=== PATIENT | female | born 1995 | race Two or more races ===

== ENCOUNTER 2016-09-18 11:30 | Outpatient (CLI) | payer BC, OTHER | END 2016-09-18 11:31 | disposition home or self-care (01) | DX: Z36 Encounter for antenatal screening of mother (principal) ==

== ENCOUNTER 2016-11-27 07:26 | Outpatient (CLI) | payer BC | END 2016-11-27 07:27 | disposition home or self-care (01) | DX: Z36 Encounter for antenatal screening of mother (principal) ==

== ENCOUNTER 2017-01-11 13:32 | Outpatient (CLI) | payer BC ==
[2017-01-11 19:14] LABS: BASOPHILS % (AUTO) 0.4 %; EOSINOPHILS # (AUTO) 0.1 10^3/uL (0.0-0.7); EOSINOPHILS % (AUTO) 1.4 %; HGB - HEMOGLOBIN 11.6 g/dL (12.0-16.0); LYMPHOCYTES # (AUTO) 1.8 10^3/uL (1.5-3.5); LYMPHOCYTES % (AUTO) 28.7 %; MEAN CORPUSCULAR HEMOGLOBIN 29.2 pg (27.0-31.0); MEAN CORPUSCULAR VOLUME 88.4 fL (81.0-99.0); MEAN PLATELET VOLUME 9.2 fL (7.9-10.8); MONOCYTES # (AUTO) 0.7 10^3/uL (0.0-1.0); MONOCYTES % (AUTO) 10.7 %; NEUTROPHILS # (AUTO) 3.7 10^3/uL (1.5-6.6); NEUTROPHILS % (AUTO) 58.8 %; NUCLEATED RED BLOOD CELLS AUTO 0.1 /100WBC; RED BLOOD COUNT 3.96 10^6/uL (4.20-5.40); UNCORRECTED WHITE BLOOD COUNT 6.3 x10^3/uL; WHITE BLOOD COUNT 6.3 x10^3/uL (4.8-10.8)
== END 2017-01-11 13:33 | disposition home or self-care (01) ==
LOC: LAB.R 13:32
PROVIDERS: ATTEND Obstetrics & Gynecology
DX: Z34.90 Encounter for supervision of normal pregnancy, unspecified, unspecified trimester (principal)
CPT/HCPCS: 36415; 82950; 85025; 86850

== ENCOUNTER 2017-02-24 10:26 | Outpatient (CLI) | payer BC | END 2017-02-24 10:27 | disposition critical access hospital (66) | LOC: EMS 10:26 | PROVIDERS: ATTEND Surgery | DX: O99.89 Other specified diseases and conditions complicating pregnancy, childbirth and the puerperium (principal); R10.9 Unspecified abdominal pain; M79.662 Pain in left lower leg; M79.661 Pain in right lower leg; V43.52XA Car driver injured in collision with other type car in traffic accident, initial encounter; Y92.413 State road as the place of occurrence of the external cause | CPT/HCPCS: A0425; A0429 ==

== ENCOUNTER 2017-02-24 10:51 | Observation (INO) | payer BC ==
[2017-02-24] MEDS ORDERED: SODIUM CHLORIDE 0.9% 1,000 ML IV ONE (11:14)
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
[2017-02-24 11:44] LABS: BASOPHILS # (AUTO) 0.1 10^3/uL (0.0-0.1); EOSINOPHILS # (AUTO) 0.1 10^3/uL (0.0-0.7); HCT - HEMATOCRIT 33.3 % (37.0-47.0); HGB - HEMOGLOBIN 10.9 g/dL (12.0-16.0); LYMPHOCYTES # (AUTO) 1.6 10^3/uL (1.5-3.5); LYMPHOCYTES % (AUTO) 29.3 %; MEAN CORPUSCULAR HEMOGLOBIN 27.7 pg (27.0-31.0); MEAN CORPUSCULAR HGB CONC 32.9 g/dL (32.0-36.0); MEAN CORPUSCULAR VOLUME 84.5 fL (81.0-99.0); MONOCYTES # (AUTO) 0.6 10^3/uL (0.0-1.0); MONOCYTES % (AUTO) 11.8 %; NEUTROPHILS % (AUTO) 56.9 %; NUCLEATED RED BLOOD CELLS AUTO 0.1 /100WBC; RED BLOOD COUNT 3.95 10^6/uL (4.20-5.40); RED CELL DISTRIBUTION WIDTH 13.6 % (12.0-15.0); UNCORRECTED WHITE BLOOD COUNT 5.3 x10^3/uL; WHITE BLOOD COUNT 5.3 x10^3/uL (4.8-10.8)
[2017-02-24 11:48] LABS: BILIRUBIN,URINE NEGATIVE (NEGATIVE)
[2017-02-24 11:49] LABS: UA CHARGE (STRIP ONLY) YES; UR CULTURE IF IND NOT INDICATED
[2017-02-24 11:56] LABS: ALBUMIN/GLOBULIN RATIO 0.8 (1.0-2.2); BILIRUBIN,TOTAL 0.5 mg/dL (0.2-1.0); CALCIUM 8.3 mg/dL (8.5-10.3); CREATININE 0.6 mg/dL (0.4-1.0); POTASSIUM 3.3 mmol/L (3.5-5.0); TOTAL PROTEIN 6.8 g/dL (6.7-8.2)
[2017-02-24] MEDS ORDERED: SODIUM CHLORIDE FLUSH 0.9% 10 ML SYRINGE IVP PRN (12:02)
[2017-02-24 12:30] LABS: BASOPHILS % (AUTO) 0.6 %; EOSINOPHILS % (AUTO) 0.7 %; HCT - HEMATOCRIT 30.6 % (37.0-47.0); HGB - HEMOGLOBIN 10.2 g/dL (12.0-16.0); LYMPHOCYTES # (AUTO) 1.3 10^3/uL (1.5-3.5); LYMPHOCYTES % (AUTO) 27.6 %; MEAN CORPUSCULAR HEMOGLOBIN 28.2 pg (27.0-31.0); MEAN CORPUSCULAR HGB CONC 33.3 g/dL (32.0-36.0); MEAN CORPUSCULAR VOLUME 84.5 fL (81.0-99.0); MEAN PLATELET VOLUME 8.9 fL (7.9-10.8); MONOCYTES # (AUTO) 0.6 10^3/uL (0.0-1.0); MONOCYTES % (AUTO) 11.9 %; NEUTROPHILS # (AUTO) 2.9 10^3/uL (1.5-6.6); NEUTROPHILS % (AUTO) 59.2 %; RED BLOOD COUNT 3.62 10^6/uL (4.20-5.40); RED CELL DISTRIBUTION WIDTH 13.6 % (12.0-15.0); UNCORRECTED WHITE BLOOD COUNT 4.9 x10^3/uL; WHITE BLOOD COUNT 4.9 x10^3/uL (4.8-10.8)
[2017-02-24] MEDS ORDERED: SODIUM CHLORIDE FLUSH 0.9% 10 ML SYRINGE IVP SCH (14:00)
--- NOTE | 2017-02-24 15:19 | Ultrasound Preliminary Report ---
Exam: US OB Limited IMPRESSION: 1. Single live intrauterine with a gestational age of 33 weeks 2 days based on LMP. 2. Anterior placenta without evidence for abruption. 3. Normal amniotic fluid volume. [facility] SITE ID: [id number]
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
--- NOTE | 2017-02-25 04:35 | Discharge Plan ---
Discharge Plan Disposition: 01 Home, Self Care Diet: Regular Activity Restrictions: Activity as Tolerated Shower Restrictions: No Driving Restrictions: No Weight Bearing: Full Weight No Smoking: If you smoke, Please STOP! Call for help. Follow-up with: John Ozuna MD [Provider Admit Priv/Credential] -
[2017-02-25 08:47] VITALS: BP 108/71
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
== END 2017-02-25 09:45 | disposition home or self-care (01) ==
LOC: EDUNIT# → ED 10:51 → FBP 12:02
PROVIDERS: ADMIT Obstetrics & Gynecology; ATTEND Obstetrics & Gynecology
DX: O9A.213 Injury, poisoning and certain other consequences of external causes complicating pregnancy, third trimester (principal); S80.12XA Contusion of left lower leg, initial encounter; S80.11XA Contusion of right lower leg, initial encounter; R10.9 Unspecified abdominal pain; Z3A.33 33 weeks gestation of pregnancy; V43.52XA Car driver injured in collision with other type car in traffic accident, initial encounter; Y92.410 Unspecified street and highway as the place of occurrence of the external cause
CPT/HCPCS: 36415; 76815; 80053; 81001; 81003; 83690; 85025; 87086; 99284

== ENCOUNTER 2017-03-15 15:58 | Outpatient (CLI) | payer BC | END 2017-03-15 15:59 | LOC: LAB.R 15:58 | PROVIDERS: ATTEND Obstetrics & Gynecology | DX: Z36 Encounter for antenatal screening of mother (principal) | CPT/HCPCS: 87081 ==

== ENCOUNTER 2017-03-20 09:43 | Outpatient (CLI) | payer BC ==
[2017-03-20 10:45] VITALS: BP 122/64
--- NOTE | 2017-03-20 16:53 | Ultrasound Report ---
BIOPHYSICAL PROFILE: 03/20/2017 CLINICAL INDICATION: Small for gestational age. TECHNIQUE: Real-time scanning was performed with corporate representative static images obtained. biophysical profile was performed. The fetus receives 2 points for tone, 2 points for fe eva movements, 2 points for respiration, and 2 points for amniotic fluid, yielding a final resu lt of 02/27. heart rate is 147 BPM. By size, the fetus measures 33 weeks 5 days (36 weeks 5 day s by LMP). Estimated weight is 2426 grams, 11th percentile by LMP dating. IMPRESSION: 02/27 BIOPHYSICAL PROFILE. ESTIMATED WEIGHT OF 2426 GRAMS. JOB #: [id number] EXT JOB #:[id number]
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
== END 2017-03-20 14:00 | disposition home or self-care (01) ==
LOC: WFO 09:43 → FBP 09:46 → WFO 14:00
PROVIDERS: ATTEND Obstetrics & Gynecology
DX: O36.8130 Decreased fetal movements, third trimester, not applicable or unspecified (principal); O36.5930 Maternal care for other known or suspected poor fetal growth, third trimester, not applicable or unspecified; Z3A.36 36 weeks gestation of pregnancy
CPT/HCPCS: 59025; 76819

== ENCOUNTER 2017-03-23 08:37 | Outpatient (CLI) | payer BC ==
[2017-03-23 08:57] VITALS: BP 118/85
--- NOTE | 2017-03-23 11:37 | Ultrasound Report ---
BIOPHYSICAL PROFILE: 03/23/2017 CLINICAL INDICATION: Nonreactive nonstress test. TECHNIQUE: Real-time scanning was performed with benefits representative static images obtained. FINDINGS: The fetus receives 2 points for tone, 2 points for movement, 2 points for feta l respiration, and 2 points for amniotic fluid, yielding a final score of 8 out of 8. The hear t rate is 133 BPM. IMPRESSION: BIOPHYSICAL PROFILE SCORE OF 8 OUT OF 8. JOB #: [id number] EXT JOB #:[id number]
== END 2017-03-23 12:10 | disposition home or self-care (01) ==
LOC: WFO 08:37 → FBP 08:40 → WFO 12:10
PROVIDERS: ATTEND Obstetrics & Gynecology
DX: O36.5930 Maternal care for other known or suspected poor fetal growth, third trimester, not applicable or unspecified (principal); Z3A.37 37 weeks gestation of pregnancy
CPT/HCPCS: 59025; 76819

== ENCOUNTER 2017-03-29 11:07 | Outpatient (CLI) | payer BC ==
[2017-03-29 11:20] VITALS: BP 123/70
--- NOTE | 2017-03-29 14:40 | Ultrasound Report ---
OB FOLLOWUP: 03/29/2017 CLINICAL INDICATION: Small for dates. TECHNIQUE: Real-time scanning was performed with branch customer service representative static images obtained. LAST MENSTRUAL PERIOD 07/06/2016 Clinical Age 38 weeks 0 days US Age 33 weeks 4 days EFW [place] 2139 g EFW% [place] 86% Heart Rate 157 bpm EDC 04/12/2017 US EDC 05/13/2017 BPD [place] 32 weeks 4 days; Mean mm 80.9 HC [place] 34 weeks 2 days; Mean mm 307.6 AC [place] 31 weeks 6 days; Mean mm 277.4 FL [place] 35 weeks 2 days; Mean mm 68.8 Presentation cephalic Placental Location anterior Cervical Length --- Amniotic Fluid 12.7 cm FINDINGS: There is a single viable intrauterine gestation, in cephalic presentation. heart rate is 157 BPM. The placenta is anterior, without evidence of previa. Amniotic fluid volume is normal, with an RASHEED of 12.7. By size, the fetus now measures 33 weeks 4 days (38 weeks 0 days by initial sonogram). Estimated weight is 2139 grams, less than 1% for gestational age. Cord Dopplers are unremarkable. No free fluid or adnexal lesion is appreciated. IMPRESSION: SINGLE VIABLE INTRAUTERINE GESTATION, NOW MEASURING LESS THAN 1 PERCENTILE ESTIMATED WEIGHT FOR GESTATIONAL AGE. NORMAL CORD DOPPLERS AND NORMAL RASHEED. MTDD
== END 2017-03-29 13:23 | disposition home or self-care (01) ==
LOC: WFO 11:07 → FBP 11:09 → WFO 13:23
PROVIDERS: ATTEND Obstetrics & Gynecology
DX: O36.5930 Maternal care for other known or suspected poor fetal growth, third trimester, not applicable or unspecified (principal); Z3A.38 38 weeks gestation of pregnancy
CPT/HCPCS: 59025; 76816

== ENCOUNTER 2017-03-29 18:07 | Inpatient (IN) | payer BC ==
--- NOTE | 2017-03-29 14:49 | HISTORY & PHYSICAL EXAMINATION ---
DATE OF ADMISSION: 03/29/2017 IDENTIFICATION: A 21-year-old, G3, P1-0-1-1 with 38 and 0/7-week intrauterine . EDC is 04/12 consistent with a 10 week ultrasound. HISTORY OF PRESENT ILLNESS: This is a patient of [facility] who presents today for a routine OB visit. Within the last 2-3 weeks she has been measuring size less than dates. A t 36 weeks, she was measuring 32 cm. Ultrasound at that time was obtained on 03/20/2017 revealing a B PP of 8/8 and estimated weight of 2426 grams or the 11th percentile. RASHEED was normal at 12.4 cm. Today, at 38 weeks the patient is here for a routine OB visit. She is again measuring size less than dates at 34 cm at 38 weeks 0 days. Another ultrasound was performed, which showed normal Doppler wilbert ws; however, estimated weight has been decreased at 2163 grams or 4 pounds 12 ounces. The baby is measuring the 1st percentile. Cervical length measured approximately 3 cm. Nonstress test was ermias gory 1. The patient is trevor every 2 minutes. I discussed with the patient that the diagnosis currently is intrauterine growth restriction for her baby since she has dropped from 11 percentile to the 1st percentile. Though the status currentl y is reassuring, I feel it is in the patient's best interest to get the baby delivered as it is most likely in a toxic environment in utero. Given the length of the cervix, the patient would most likely need some cervical ripening. If she continues to contract, we will probably give her Cervidil overni ght and start Pitocin, assuming that her cervix is thinned out in the morning. PAST MEDICAL HISTORY: None. PAST SURGICAL HISTORY 1. Appendectomy. 2. 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 ALLERGIES: NO KNOWN DRUG ALLERGIES. MEDICATIONS: vitamins. SOCIAL HISTORY: She denies any tobacco, alcohol or illicit drug use. The patient's boyfriend's name i s Jr, and they have a daughter, Akila. This is a female fetus with anticipated name of Grant Mayers MD, is their chosen field operations coordinator, and the patient does anticipate to breast feed. She also wants an epidural for pain control in labor. PAST OBSTETRICAL HISTORY 1. One therapeutic . 2. On 04/21/2015 at 37 weeks' gestation, the patient delivered her daughter Akila after spontaneo usly rupturing her membranes at 37 weeks. weight was 2267 grams. There were no complications. PAST GYNECOLOGIC HISTORY: The patient has had an ASCUS Pap smear in August of this year. She denies any other sexually transmitted diseases. FAMILY HISTORY: Breast cancer in the maternal aunt and cervical cancer in maternal grandmother. REVIEW OF SYSTEMS Negative unless otherwise stated. She denies any nausea, vomiting, fevers, chills, diarrhea or consti pation. OBJECTIVE VITAL SIGNS: She weighs 120 pounds. Height is 60 inches. BMI of 23.5. Blood pressure 120/68. GENERAL: The patient is a well-developed, well-nourished female in no apparent distr ess. She is alert and oriented x3. HEENT: Within normal limits. She does wear glasses. CARDIOVASCULAR: Rate is regular. No murmurs or rubs. PULMONARY: Lungs clear to auscultation bilaterally. ABDOMEN: Gravid, nontender. LABORATORY DATA: Laboratories reveal that she is O positive. Antibody screen is negative. ASCUS Pap s mear on 09/12/2016 Pap smear HIV negative, RPR nonreactive, rubella immune, hepatitis B surface antig en nonreactive. anatomical survey is consistent with dates and within normal limits. One hour G TT is 82. GBS is negative. ASSESSMENT 1. A 21-year-old G3, P1-0-1-1 with a 38 and 0/7 week intrauterine . 2. Intrauterine growth restriction. 3. Cervix remote from delivery. PLAN 1. The patient to go home and return after she has gotten her affairs in order for induction of labor . 2. Most likely Cervidil induction overnight with Pitocin in the morning. 3. Closely monitor the tracing. Most likely, we will have the field operations coordinator regional medical director to be in att endance for delivery. 4. Epidural for pain control. 5. Anticipate after delivery. JOB #: [id number] EXT JOB #:[id number]
[2017-03-29] MEDS ORDERED: ONDANSETRON 4 MG/2 ML VIAL IVP PRN (18:33)
[2017-03-29] MEDS ORDERED: fentaNYL 100 MCG/2 ML VIAL IVP PRN (18:33)
[2017-03-29] MEDS ORDERED: ACETAMINOPHEN 325 MG TABLET PO PRN (18:33)
[2017-03-29] MEDS ORDERED: SODIUM CHLORIDE FLUSH 0.9% 10 ML SYRINGE IVP PRN (18:33)
[2017-03-29] MEDS ORDERED: ZOLPIDEM 5 MG TABLET PO PRN (18:37)
[2017-03-29] MEDS ORDERED: DINOPROSTONE 10 MG SUPP VG ONE (19:00)
[2017-03-29 19:07] LABS: BASOPHILS # (AUTO) 0.1 10^3/uL (0.0-0.1); BASOPHILS % (AUTO) 1.2 %; EOSINOPHILS # (AUTO) 0.1 10^3/uL (0.0-0.7); EOSINOPHILS % (AUTO) 1.3 %; HCT - HEMATOCRIT 35.1 % (37.0-47.0); HGB - HEMOGLOBIN 11.5 g/dL (12.0-16.0); LYMPHOCYTES # (AUTO) 2.4 10^3/uL (1.5-3.5); LYMPHOCYTES % (AUTO) 33.8 %; MEAN CORPUSCULAR HEMOGLOBIN 26.5 pg (27.0-31.0); MEAN CORPUSCULAR HGB CONC 32.7 g/dL (32.0-36.0); MEAN CORPUSCULAR VOLUME 81.2 fL (81.0-99.0); MEAN PLATELET VOLUME 9.5 fL (7.9-10.8); MONOCYTES # (AUTO) 0.7 10^3/uL (0.0-1.0); NEUTROPHILS # (AUTO) 3.8 10^3/uL (1.5-6.6); NEUTROPHILS % (AUTO) 53.7 %; NUCLEATED RED BLOOD CELLS AUTO 0.1 /100WBC; RED BLOOD COUNT 4.33 10^6/uL (4.20-5.40); RED CELL DISTRIBUTION WIDTH 14.9 % (12.0-15.0); UNCORRECTED WHITE BLOOD COUNT 7.2 x10^3/uL; WHITE BLOOD COUNT 7.2 x10^3/uL (4.8-10.8)
[2017-03-29] MEDS ORDERED: LACTATED RINGERS 1,000 ML IV ONE ×2 (19:16→19:21)
[2017-03-30] MEDS ORDERED: LACTATED RINGERS 1,000 ML IV ONE (02:35)
[2017-03-30] MEDS ORDERED: OXYTOCIN 10 UNIT/ML VIAL ONE ×2 (02:49→02:55)
[2017-03-30] MEDS ORDERED: LACTATED RINGERS 500 ML IV ONE (02:52)
[2017-03-30] MEDS ORDERED: fent/BUPIV 2 MCG/0.125% 0 ML EP ONE (03:09)
[2017-03-30] MEDS ORDERED: fentaNYL 100 MCG/2 ML VIAL ONE (03:10)
[2017-03-30] MEDS ORDERED: OXYTOCIN/LACTATED RINGERS 250 ML IV ONE ×2 (03:12→04:06)
[2017-03-30] MEDS ORDERED: LIDOCAINE 1% 50 ML MDV ONE (03:39)
[2017-03-30] MEDS ORDERED: HYDROCORTISONE/PRAMOXINE 10 GM PR PRN (04:06)
[2017-03-30] MEDS ORDERED: SIMETHICONE CHEW 80 MG TABLET PO PRN (04:06)
[2017-03-30] MEDS ORDERED: WITCH HAZEL/GLYCERIN 1 EACH MED..PAD TOP PRN (04:06)
[2017-03-30] MEDS ORDERED: HYDROCORTISONE 1% CREAM 28 GM TUBE PR PRN (04:06)
--- NOTE | 2017-03-30 04:06 | DELIVERY NOTE ---
Delivery Note - Labor Labor: positive: Other (Induction with cervidil) - Delivery Method Infant Delivery Method: positive: Spontaneous vaginal delivery - Presentation Presentation: positive: Vertex - Nuchal Cord Nuchal Cord: positive: None - Anesthetic Anesthetic: positive: Lidocaine - 0.5% plain Volume: positive: 2cc - Amniotic Fluid Description Amniotic Fluid Description: positive: Clear - Episiotomy Type Episiotomy Type: positive: None - Laceration Laceration: positive: 1st degree, Perineal - Suture Suture Type: positive: Vicryl Suture Size: positive: 4-0 - Delivery Outcome Delivery Outcome: positive: Livebirth - [place] sex: positive: Female : 9 : 9 - Cord Cord: positive: 3 vessels - Placenta Placenta: positive: Intact, Spontaneous - Estimated Blood Loss Estimated Blood Loss (in cc): 200 - Post Delivery Events Post Delivery Events: positive: No post delivery events - Delivery Comments (Free Text/Narrative) Delivery Comments (Free Text/Narrative): 21 yo with a 38w0d IUP was induced for IUGR. 03/29/2017 U/S showed EFW 2139 gm, 0.86%centile, RASHEED 12.7 cm. Normal cord dopplers. Patient was given cervidil. SROM and RN exam was 4 cm at the time. The patient precipitously delivered a viable female , "Delfina" by Camryn YA RN. Did not receive epidural as she had desired. Apgars 9/9. Weight 2500 gm or 5 lbs 8.1 oz. 1st degree laceration repaired with 4-0 vicryl. EBL 200 mL. Placenta delivered spontaneously, intact with 3VC. Placenta to pathology. No complications. Labs, EKG, Meds, Allergy - Lab Results Fish Bones: 03/29/17 18:53 Other Lab Results: Lab Results x24hrs 03/29/17 Range/Units 18:53 WBC 7.2 (4.8-10.8) x10^3/uL RBC 4.33 (4.20-5.40) 10^6/uL Hgb 11.5 L (12.0-16.0) g/dL Hct 35.1 L (37.0-47.0) % MCV 81.2 (81.0-99.0) fL MCH 26.5 L (27.0-31.0) pg MCHC 32.7 (32.0-36.0) g/dL RDW 14.9 (12.0-15.0) % Plt Count 247 (130-450) 10^3/uL MPV 9.5 (7.9-10.8) fL Neut # 3.8 (1.5-6.6) 10^3/uL Lymph # 2.4 (1.5-3.5) 10^3/uL [place] # 0.7 (0.0-1.0) 10^3/uL Eos # 0.1 (0.0-0.7) 10^3/uL Baso # 0.1 (0.0-0.1) 10^3/uL Absolute Nucleated RBC 0.01 x10^3/uL Nucleated RBCs 0.1 /100WBC - Medications Medications: Ambulatory Orders Medication Instructions Recorded Confirmed No Known Home Medications [No 02/27/14 02/27/14 Known Home Medications] - Allergy Allergy: Allergies Allergy/AdvReac Type Severity Reaction Status Date / Time No Known Drug Allergies Allergy Verified 02/27/14 09:39 No Known Home Medications [No Known Home Medications] 02/27/14
[2017-03-30] MEDS ORDERED: HYDROcodone/ACETAM 7.5 MG/325 MG 15 ML UDC PO PRN (04:10)
[2017-03-30] MEDS ORDERED: IBUPROFEN 100 MG/5 ML UDC ONE (04:40)
[2017-03-30] MEDS: IBUPROFEN 100 MG/5 ML UDC PO SCH ×4 (04:43→23:21)
[2017-03-30] MEDS: ACETAMINOPHEN 160 MG/5 ML SUSP UDC PO SCH ×3 (07:15→18:05)
--- NOTE | 2017-03-30 14:31 | PROVIDER PROGRESS NOTE ---
Subjective - Prog Note Date Prog Note Date: 03/30/17 Prog Note Time: 14:29 - Subjective Pt reports feeling: Improved Subjective: Patient trying to sleep in bed. [id number] visiting. Anabell Norris and two year old daughter Akila also here. Doing well, no complaints. No BP issues like she had with Akila. BP elevated . Objective - Vital Signs/Intake & Output Reviewed Vital Signs: Yes Vital Signs: Vital Signs x48h Temp Pulse Resp BP 03/30/17 09:09 98.8 F 95 16 117/74 Intake & Output: Intake & Output 03/27/17 03/28/17 03/29/17 03/30/17 23:59 23:59 23:59 23:59 Intake Total 500 875 Output Total 1 451 Balance 499 424 - Objective General Appearance: positive: No acute distress Eyes Bilateral: positive: Normal inspection Neurologic/Psychiatric: positive: Oriented x3, Mood/affect nml - Lab Results Fish Bones: 03/29/17 18:53 Other Labs: Lab Results x24hrs 03/29/17 Range/Units 18:53 WBC 7.2 (4.8-10.8) x10^3/uL RBC 4.33 (4.20-5.40) 10^6/uL Hgb 11.5 L (12.0-16.0) g/dL Hct 35.1 L (37.0-47.0) % MCV 81.2 (81.0-99.0) fL MCH 26.5 L (27.0-31.0) pg MCHC 32.7 (32.0-36.0) g/dL RDW 14.9 (12.0-15.0) % Plt Count 247 (130-450) 10^3/uL MPV 9.5 (7.9-10.8) fL Neut # 3.8 (1.5-6.6) 10^3/uL Lymph # 2.4 (1.5-3.5) 10^3/uL Moca # 0.7 (0.0-1.0) 10^3/uL Eos # 0.1 (0.0-0.7) 10^3/uL Baso # 0.1 (0.0-0.1) 10^3/uL Absolute Nucleated RBC 0.01 x10^3/uL Nucleated RBCs 0.1 /100WBC Assessment/Plan - Problem List (1) Vaginal delivery Impression: 21 yo S/p 03/30/2017 Normal recovery Routine care Anticipate discharge to home tomorrow Follow up with Dr. Hutchinson in 6 weeks for a routine exam Rx for liquid ibuprofen sent to [facility] Handwritten Rx for liquid vicodin written for discharge Call if worsening fevers, chills, abdominal pain or vaginal bleeding Will discuss contraception at next visit (2) growth restriction Impression: IUGR, delivered
[2017-03-31] MEDS: ACETAMINOPHEN 160 MG/5 ML SUSP UDC PO SCH ×3 (00:27→13:23)
[2017-03-31] MEDS: IBUPROFEN 100 MG/5 ML UDC PO SCH ×2 (06:29→13:19)
[2017-03-31 08:44] VITALS: BP 107/66
--- NOTE | 2017-03-31 11:38 | PROVIDER PROGRESS NOTE ---
Subjective - Prog Note Date Prog Note Date: 03/31/17 Prog Note Time: 11:36 - Subjective Pt reports feeling: Improved (24 hours poat 0/10 pain. breast feeding. voiding flatus. desires to go home.) Objective - Vital Signs/Intake & Output Reviewed Vital Signs: Yes Vital Signs: Vital Signs x48h Temp Pulse Resp BP Pulse Ox 03/31/17 08:43 36.6 C 55 L 18 107/66 100 03/31/17 04:19 36.6 C 54 L 16 115/83 H 99 Intake & Output: Intake & Output 03/28/17 03/29/17 03/30/17 03/31/17 23:59 23:59 23:59 23:59 Intake Total 500 875 Output Total 1 451 Balance 499 424 - Objective General Appearance: positive: No acute distress, Alert Eyes Bilateral: positive: Normal inspection Respiratory: positive: Chest non-tender, No respiratory distress, Breath sounds nml Cardiovascular: positive: Regular rate & rhythm, No murmur (/), No gallop Abdomen: positive: Non-tender, Nml bowel sounds, No distention, Mass (u-2). negative: Tenderness Extremities: negative: Calf tenderness, Naseem's sign/cords Neurologic/Psychiatric: positive: Oriented x3 - Lab Results Fish Bones: 03/29/17 18:53 Assessment/Plan - Problem List (1) Vaginal delivery Impression: recovering well Reviewed mastitis, breast feeding, contraception Discharge to home
--- NOTE | 2017-03-31 11:49 | Discharge Plan ---
Discharge Plan Disposition: 01 Home, Self Care Condition: Good Diet: Regular Activity Restrictions: pelvic rest 6 weeks Shower Restrictions: No Driving Restrictions: No Weight Bearing: Full Weight No Smoking: If you smoke, Please STOP! Call for help. Follow-up with: John Ramirez MD [Provider Admit Priv/Credential] -
--- NOTE | 2017-03-31 14:34 | Labor Flowsheet ---
Labor Flowsheet Datetime Report Generated by CPN: 03/31/2017 14:33 Datetime: 03/31/2017 08:29 VITAL SIGNS NBP Sys/Lola/Mean (mmHg): 107 : 66 : 76 Pulse: 54 SpO2 (%): 100 Datetime: 03/31/2017 08:27 Temperature (F): 92.7 Temperature (C): 33.7 Temperature (C): 33.7 Datetime: 03/30/2017 03:29 Stage of : Recovery Datetime: 03/30/2017 03:19 COMMUNICATION LaborFlag: Labor Datetime: 03/30/2017 03:15 VAGINAL EXAM Dilatation (cm): 10.0 Effacement (%): 100 Station: 2 Exam by: [email or web address] Datetime: 03/30/2017 03:00 UTERINE ACTIVITY Monitor Mode: External Frequency (min): 1.5 - 3 Quality: Moderate Duration (sec): 90-150 Pattern: Tachysystole: > 5 Contractions in 10 Minutes Resting Tone (Palpate): Relaxed Contraction Comments: Anesthesia here ASSESSMENT A Monitor Mode: External US FHR Baseline Rate : 125 FHR Baseline Changes: No Baseline Change Variability: Moderate 6-25 bpm Accelerations: 15X15 Decelerations: Variable Category: Category I Datetime: 03/30/2017 02:25 Membrane Status: Ruptured Membranes Ruptured Date/Time: 03/30/2017 02:25 Membranes Rupture Method: Spontaneous Amniotic Fluid Color: Clear Amniotic Fluid Amount: Small Amniotic Fluid Odor: Normal Vaginal Bleeding: None Pool: Positive Datetime: 03/30/2017 01:29 Comments: at 0125 pt got oob to bathroom, picking up maternal for approx 1 min. Cervix, Consistency: Soft Cervix, Position: Midposition Vaginal Exam Comments: bulging bag felt Datetime: 03/30/2017 00:16 Temperature Route: Oral Datetime: 03/29/2017 22:00 MEDICATIONS Cervical Ripening Agents: Cervidil Medication Comments: placed intravag Datetime: 03/29/2017 21:45 Respirations: 18
--- NOTE | 2017-04-02 09:13 | DISCHARGE SUMMARY ---
DATE OF ADMISSION: 03/30/2017 DATE OF DISCHARGE: 03/31/2017 ADMITTING DIAGNOSES 1. 38 weeks. 2. Intrauterine growth restriction. DISCHARGE DIAGNOSES 1. 38 weeks. 2. Intrauterine growth restriction. 3. Spontaneous rupture of membranes. 4. Precipitous vaginal delivery. PROCEDURES 1. Cervidil for cervical ripening. 2. Assisted vaginal delivery. 3. Repair of first-degree laceration. PRESENTING HISTORY: The patient is a 21-year-old G3, P2 female who started her OB care early. She was 38 weeks gestation, had an ultrasound done on 03/29/2017, which showed evidence significant IUGR scotty ng in the 1st percentile. She had an RASHEED of 12.7 with normal cord Dopplers. For this reason, she was brought in for induction with vaginal delivery. Her CBC on admission showed a white count of 7.2, the hemoglobin was 11.5, hematocrit was 35.1, and p latelets were 247. HOSPITAL COURSE: The patient was admitted, received Cervidil for cervical ripening, she went to 4 cm, spontaneously ruptured her membranes, and then precipitously delivered a live female with Apg ars 9 and 9. The infant weighed 2500 grams. There was a first-degree laceration that was suffered at delivery, which was repaired with 4-0 Vicryl. Her estimated blood loss was 200 mL. The placenta was d elivered spontaneously, a 3-vessel cord was noted, the placenta was noted to be intact. Her hospital course has been unremarkable. She is taking a regular diet, her bowel and bladder are work ing well at this time. DISCHARGE MEDICATIONS 1. Vicodin. 2. She will take her own home supply of Motrin. She is instructed to monitor her breasts for evidence of mastitis. She has been informed that breastf eeding is not adequate contraception. At this point, she is choosing to utilize Nexplanon; this will be inserted at her 6 weeks check. JOB #: [id number] EXT JOB #:[id number]
== END 2017-03-31 13:50 | disposition home or self-care (01) | DRG 775 ==
LOC: WFO 18:07 → FBP 18:09 → WFO 18:32 → FBP 18:33 → OBSVTOIN 03-30 02:25
PROVIDERS: ADMIT Obstetrics & Gynecology; ATTEND Obstetrics & Gynecology
PROC: 0HQ9XZZ Repair Perineum Skin, External Approach (ICD-10-PCS; principal; 2017-03-30)
PROC: 10E0XZZ Delivery of Products of Conception, External Approach (ICD-10-PCS; 2017-03-30)
DX: O36.5930 Maternal care for other known or suspected poor fetal growth, third trimester, not applicable or unspecified (principal); O62.3 Precipitate labor; O70.0 First degree perineal laceration during delivery; O99.89 Other specified diseases and conditions complicating pregnancy, childbirth and the puerperium; R87.610 Atypical squamous cells of undetermined significance on cytologic smear of cervix (ASC-US); Z3A.38 38 weeks gestation of pregnancy; Z37.0 Single live birth
CPT/HCPCS: 36415; 59025; 59200; 76816; 85025; 88307; 96374

== ENCOUNTER 2018-05-30 16:08 | Outpatient (CLI) | payer BC, OTHER ==
--- NOTE | 2018-05-30 23:56 | Ultrasound Report ---
Reason: UNSPECIFIED ABDOMINAL PAIN Procedure Date: 05/30/2018 Accession Number: [id number] / [id number] Procedure: US - Pelvic w/Transvaginal CPT Code: FULL RESULT: EXAM: PELVIC ULTRASOUND EXAM DATE: 05/30/2018 05:05 PM. CLINICAL HISTORY: UNSPECIFIED ABDOMINAL PAIN. COMPARISON: None. TECHNIQUE: Realtime transabdominal pelvic scan performed to identify the uterus and adnexa and as an overview of other pelvic structures, followed by transvaginal scan to provide greater detail of the uterus and adnexa, with static image documentation. FINDINGS: Uterus: 8.1 x 4.1 x 4.9 cm, volume 84 cc. Retroverted. position. Normal overall size and echotexture. Masses: None. Endometrium: 7.1 mm. Normal. Cervix: Unremarkable. Right Ovary: 2.7 x 2.8 x 1.6 cm, volume 6.4 cc. Normal echotexture and blood flow. Left Ovary: Surgically removed. Left adnexa appears unremarkable. Free Fluid: None. IMPRESSION: Normal pelvic ultrasound. See above. RADIA
== END 2018-05-30 16:09 | disposition home or self-care (01) ==
LOC: DI 16:08
PROVIDERS: ATTEND Obstetrics & Gynecology
DX: R10.9 Unspecified abdominal pain (principal); Z90.721 Acquired absence of ovaries, unilateral
CPT/HCPCS: 76830; 76856

== ENCOUNTER 2019-01-29 15:32 | Outpatient (CLI) | payer BC ==
--- NOTE | 2019-01-30 12:36 | Ultrasound Report ---
Reason: TEST POSITIVE Procedure Date: 01/29/2019 Accession Number: [id number] / [id number] Procedure: US - OB First Trimester CPT Code: FULL RESULT: EXAM: FIRST TRIMESTER OBSTETRIC ULTRASOUND (Less than 11 weeks) EXAM DATE: 01/29/2019 03:52 PM. CLINICAL HISTORY: TEST POSITIVE. LMP: Unknown. COMPARISONS: None. TECHNIQUE: Transabdominal and transvaginal ultrasound examination with static image documentation. CLINICAL DATES: EGA 8 weeks 0 days with ALHAJI 09/10/2019 based on LMP. ASSESSMENT: Gestational Sac: Single intrauterine. Mean gestational sac diameter: 33 mm = 8 weeks 3 days. Embryo: CRL (crown-rump length) 19 mm = 8 weeks 3 days. Cardiac activity: 163 beats per minute. Yolk sac: 4 mm. Amniotic fluid: Not accurately assessed at this gestational age. Early placenta: Not visible at this gestational age. Other: Perigestational fluid collection measuring 2.4 x 1.3 x 1.2 cm. MATERNAL STRUCTURES: Uterus: Retroverted. Unremarkable. Cervix: Closed. Right Ovary/Adnexa: The ovary measures 2.9 x 2.1 x 1.8 cm, volume 5.7 cc. Probable corpus luteal cyst measuring up to 2.0 cm.. Left Ovary/Adnexa: Absent. Free Fluid: None. Other: None. IMPRESSION: 1. Single viable intrauterine at EGA 8 weeks 3 days with ALHAJI 09/07/2019 based on crown-rump length, which is concordant with clinical dates. 2. Assigned dating is ALHAJI 09/10/2019 based on LMP. RADIA
== END 2019-01-29 15:33 | disposition home or self-care (01) ==
LOC: DI 15:32
PROVIDERS: ATTEND Nurse Practitioner Obstetrics & Gynecology
DX: Z32.01 Encounter for pregnancy test, result positive (principal)
CPT/HCPCS: 76801; 76817

== ENCOUNTER 2019-02-14 10:58 | Outpatient (CLI) | payer BC ==
[2019-02-14 17:43] LABS: MUDS CUTOFF CONCENTRATIONS CUTOFF CONC BELOW:
[2019-02-14 18:14] LABS: BILIRUBIN,URINE NEGATIVE (NEGATIVE); GLUCOSE, URINE (UA) NEGATIVE (NEGATIVE); KETONES,URINE (UA) NEGATIVE (NEGATIVE); LEUKOCYTE ESTERASE, URINE NEGATIVE (NEGATIVE); NITRITE,URINE NEGATIVE (NEGATIVE); OCCULT BLOOD,URINE NEGATIVE (NEGATIVE); PROTEIN,URINE NEGATIVE (NEGATIVE); UROBILINOGEN,URINE 0.2 (NORMAL) E.U./dL (NORMAL)
[2019-02-14 18:25] LABS: AMPHETAMINE SCREEN,URINE NEGATIVE (NEGATIVE); BENZODIAZEPINES SCREEN, URINE NEGATIVE (NEGATIVE); COCAINE SCREEN URINE NEGATIVE (NEGATIVE); METHADONE SCREEN, URINE NEGATIVE (NEGATIVE); METHAMPHETAMINES SCREEN, URINE NEGATIVE (NEGATIVE); OPIATE SCREEN, URINE NEGATIVE (NEGATIVE); OXYCODONE SCREEN, URINE NEGATIVE (NEGATIVE); PROPOXYPHENE SCREEN, URINE NEGATIVE (NEGATIVE); TRICYCLIC ANTIDEPRESSANT,URINE NEGATIVE (NEGATIVE)
[2019-02-14 18:53] LABS: AMORPHOUS SEDIMENT,UR Few /LPF; BACTERIA,URINE None Seen /HPF (None Seen); CLARITY,URINE CLEAR (CLEAR); RBC,URINE None Seen /HPF (0-5); SQUAMOUS EPITHELIAL CELL,UR NONE SEEN (<= Few)
[2019-02-14 23:03] LABS: TRICHOMONAS VAGINALIS DNA NEGATIVE (NEGATIVE)
== END 2019-02-14 23:59 | disposition home or self-care (01) ==
LOC: LAB.R 10:58
PROVIDERS: ATTEND Nurse Practitioner Obstetrics & Gynecology
DX: Z36.89 Encounter for other specified antenatal screening (principal)
CPT/HCPCS: 80306; 81001; 87086; 87491; 87591; 87661

== ENCOUNTER 2019-02-18 11:56 | Outpatient (CLI) | payer BC ==
[2019-02-18 12:26] LABS: BASOPHILS % (AUTO) 0.4 %; EOSINOPHILS # (AUTO) 0.2 10^3/uL (0.0-0.7); HGB - HEMOGLOBIN 12.6 g/dL (12.0-16.0); LYMPHOCYTES # (AUTO) 1.8 10^3/uL (1.5-3.5); LYMPHOCYTES % (AUTO) 35.3 %; MEAN CORPUSCULAR HEMOGLOBIN 30.9 pg (27.0-31.0); MEAN CORPUSCULAR HGB CONC 35.1 g/dL (32.0-36.0); MEAN PLATELET VOLUME 9.8 fL (7.9-10.8); MONOCYTES # (AUTO) 0.5 10^3/uL (0.0-1.0); NEUTROPHILS # (AUTO) 2.6 10^3/uL (1.5-6.6); NEUTROPHILS % (AUTO) 51.9 %; PLT - PLATELET COUNT 309 10^3/uL (130-450); RED BLOOD COUNT 4.08 10^6/uL (4.20-5.40); RED CELL DISTRIBUTION WIDTH 12.7 % (12.0-15.0)
[2019-02-19 11:41] LABS: HEPATITIS B SURFACE ANTIGEN NON-REACTIVE (NON-REACTIVE)
[2019-02-19 13:31] LABS: HEPATITIS C ANTIBODY NON-REACTIVE (NON-REACTIVE)
[2019-02-19 14:02] LABS: HIV AG/AB 4TH GEN NON-REACTIVE (NON-REACTIVE)
== END 2019-02-18 11:57 | disposition home or self-care (01) ==
LOC: LAB 11:56
PROVIDERS: ATTEND Nurse Practitioner Obstetrics & Gynecology
DX: Z36.89 Encounter for other specified antenatal screening (principal)
CPT/HCPCS: 36415; 81599; 85025; 86762; 86803; 86850; 86900; 86901; 87340; 87389

== ENCOUNTER 2019-04-23 13:29 | Outpatient (CLI) | payer BC, MEDICAID ==
--- NOTE | 2019-04-23 15:52 | Ultrasound Report ---
Reason: SCREENING Procedure Date: 04/23/2019 Accession Number: [id number] / [id number] Procedure: US - OB Detailed Eval CPT Code: FULL RESULT: EXAM: COMPLETE OBSTETRICAL ULTRASOUND EXAM DATE: 04/23/2019 03:35 PM. CLINICAL HISTORY: anatomic survey. COMPARISON: Obstetrical ultrasound 01/29/2019. TECHNIQUE: Real-time sonographic evaluation of the fetus performed by the conservation coordinator. Multiple civil rights representative static images were saved for review. Transabdominal imaging only. DATING: Established EGA 20 weeks 0 days with ALHAJI 09/10/2019 based on LMP. EGA 20 weeks 3 days with ALHAJI 09/07/2019 based on prior ultrasound. EGA 19 weeks 5 days with ALHAJI 09/12/2019 based on the current ultrasound. GENERAL EVALUATION Fox . Cardiac activity: 136 bpm. movement: Visualized. Presentation: Breech/variable. Placenta: Posterior fundal position. No evidence for previa. Umbilical cord: 3 vessel cord. Central placental cord origin. Amniotic fluid: Subjectively normal. MVP 4.23 cm. BIOMETRY Bi-Parietal Diameter (BPD): 4.37 cm, 19 weeks 2 days. Head Circumference (HC): 16.7 cm, 19 weeks 3 days. Abdominal Circumference (AC): 14.8 cm, 20 weeks 1 day. Femur Length (FL): 3.2 cm, 20 weeks 0 days. Estimated Weight: 325 g, 43.9 percentile for 19 weeks 5 days. ANATOMY The intracranial structures, profile, face/nose/lips, spine, 4 chamber heart and outflow tracts, stomach, abdominal wall and cord insertion, diaphragm, kidneys, bladder, and extremities were visualized and demonstrate no abnormality. The nuchal fold measured 4 mm which is within normal limits for this gestational age. MATERNAL STRUCTURES Uterus: Unremarkable. Cervix: Long and closed. Transabdominal length 4.8 cm. Right ovary/adnexa: Unremarkable. Left ovary/adnexa: Unremarkable. Free fluid: None. IMPRESSION: 1. Fox live intrauterine with gestational age 19 weeks 5 days based on current ultrasound. 2. Estimated weight is within expected limits for assigned dating. 3. Normal anatomic survey. No anatomic abnormalities are detected at this time. RADIA
== END 2019-04-23 13:30 | disposition home or self-care (01) ==
LOC: DI 13:29
PROVIDERS: ATTEND Nurse Practitioner Obstetrics & Gynecology
DX: Z36.89 Encounter for other specified antenatal screening (principal)
CPT/HCPCS: 76811